=== PATIENT | female | born 1990 | race Caucasian/White ===

== ENCOUNTER 2019-03-06 19:24 | Emergency (ER) | payer OTHER ==
[~2019-03-06] VITALS: Ht 162.6 cm; Wt 68.0 kg
--- NOTE | 2019-03-06 20:31 | NUR ---
Patient discharged to home in stable conditon. Written and verbal after care instructions given. Patient verbalizes understanding of instructions. OPatient driven home by mother. No acute distress. All belongings with patient
[2019-03-06 20:34] VITALS: BP 127/80
== END 2019-03-06 20:34 | disposition home or self-care (01) ==
LOC: ER 19:24
DX: F10.129 Alcohol abuse with intoxication, unspecified (principal); Z59.0 Homelessness; Y90.9 Presence of alcohol in blood, level not specified
CPT/HCPCS: A4663

== ENCOUNTER 2019-08-19 19:59 | Emergency (ER) | payer OTHER ==
[~2019-08-19] VITALS: Ht 162.6 cm; Wt 77.6 kg
--- NOTE | 2019-08-19 20:05 | NUR ---
Pt BIB by [facility] from [place] for Alcohol intoxication. Upon arrival pt is brought in via gurney, awake, alert and oriented x 4. Able to answer questions appropriately, but mood is extremely labile and she is crying and appears very anxious. Verbalizes that she is scared and she says, "Please help, I dont want to be in the hospital." Placed on comfortable position in bed. Denies homcidal and suicidal ideations. No contrabands found with patient. Side rails up x 2. Bed locked in position.
[2019-08-19] MEDS ORDERED: [UNRECOGNIZED DRUG - REMARK] (20:08)
[2019-08-19] MEDS ORDERED: [UNRECOGNIZED DRUG - REMARK] (20:08)
--- NOTE | 2019-08-19 20:10 | NUR ---
Dr. Puente at bedside for MSE.
[2019-08-19] MEDS ORDERED: IV NORMAL SALINE 1000 ML BAG IV ONE (20:15)
[2019-08-19 20:26] LABS: BASOPHILS # (AUTO) 0.1 K/uL (0.0-8.0); BASOPHILS % (AUTO) 0.9 % (0.0-2.0); EOSINOPHILS % (AUTO) 0.4 % (0.0-7.0); HEMATOCRIT 39.1 % (31.2-41.9); HEMOGLOBIN 13.3 g/dL (10.9-14.3); LYMPHOCYTES # (AUTO) 2.4 K/uL (20.0-40.0); MEAN CORPUSCULAR HEMOGLOBIN 33.3 uug (24.7-32.8); MEAN CORPUSCULAR HGB CONC 34 g/dL (32.3-35.6); MEAN CORPUSCULAR VOLUME 97.6 fL (75.5-95.3); MONOCYTES # (AUTO) 0.5 K/uL (2.0-10.0); MONOCYTES % (AUTO) 8.4 % (0.0-11.0); NEUTROPHILS # (AUTO) 2.7 K/uL (1.8-8.9); NEUTROPHILS % (AUTO) 48.3 % (38.5-71.5); PLATELET COUNT (AUTO) 303 K/uL (179-408); WHITE BLOOD COUNT (AUTO) 5.6 K/uL (3.8-11.8)
[2019-08-19 20:40] LABS: BILIRUBIN,TOTAL 0.1 mg/dL (0.2-1.0); CREATININE 0.8 mg/dL (0.6-1.3); POTASSIUM 3.7 mmol/L (3.5-5.1); TOTAL PROTEIN, SERUM 7.5 g/dL (6.4-8.2)
[2019-08-19 20:42] LABS: BILIRUBIN,DIRECT 0.1 mg/dL (0.0-0.2)
[2019-08-19 21:12] LABS: *URINE HCG, QUAL NEGATIVE (NEGATIVE)
[2019-08-19] MEDS ORDERED: LORAZEPAM 2 MG/1 ML VIAL ONE (21:24)
[2019-08-19] MEDS ORDERED: LORAZEPAM 2 MG/1 ML VIAL IV ONE (21:30)
--- NOTE | 2019-08-19 22:57 | NUR ---
Pt is asleep at this time. Respirations are even and unlabored. Pt is not yet able to be fully awake, to follow directions or stand on her own. Fatou (mother) [phone], called who said that the sober living facility that our patient was from is unable to take her back, explained our procedures for DC, she verbalized understanding. Side rails kept up x 2. Bed locked in position.
--- NOTE | 2019-08-20 03:00 | NUR ---
Pt is now fully awake alert and oriented x 4. Able to ambulate from bed to bathroom and back (60 steps) in steady gait. Verbalizes that she is ready to go home and actually has a place to go after discharge and she will arrange her own transportation from here. made aware.
--- NOTE | 2019-08-20 03:25 | NUR ---
Dr. Puente at bedside cleared pt for DC and provided patient with DC teaching. Written and verbal after care instructions given. Patient verbalizes understanding of instructions. IV removed. Catheter intact and site benign. Pressure and 4x4 gauze applied to site. No bleeding noted. Pt ambulated out of ER in steady gait and stable condition.
[2019-08-20 03:35] VITALS: BP 100/70
== END 2019-08-20 03:37 | disposition home or self-care (01) ==
LOC: MERGE 20:01 → ER 20:01
DX: F10.129 Alcohol abuse with intoxication, unspecified (principal); Y90.8 Blood alcohol level of 240 mg/100 ml or more; F31.9 Bipolar disorder, unspecified; F17.210 Nicotine dependence, cigarettes, uncomplicated; Z79.899 Other long term (current) drug therapy
CPT/HCPCS: 36415; 80048; 80076; 80307; 84703; 85025; 96361; 96374; 99284; J2060; A4663; G0480